=== PATIENT | female | born 1990 | race Caucasian/White ===

== ENCOUNTER 2017-02-20 10:40 | Emergency (ER) | payer OTHER ==
--- NOTE | ~2017-02-20 | CR63 ---
[facility] A Service of [facility] RADIOLOGY TEXT RESULTS PATIENT: CLEOPATRA CARMONA LOCATION: SED : [birth year] UNIT #: [id number] AGE: [address]: Ratna Lopez APRN SEX: F ORDER DR: [id number] [address] [id number] E MR#: [id number] Acc #: [id number] NAME: CLEOPATRA CARMONA : 1990 SEX: F STUDY DATE/TIME: 02/20/2017 11:51 UNIT: SED ROOM: STUDY DESCRIPTION: CR Chest 2 View Attending Physician: Ratna Lopez A.P.R.N. Ordering Physician: Ratna Matamoros A.P.R.N. Primary Care Physician: Landry Crane M.D. MEDICAL IMAGING REPORT This report is preliminary unless electronic signature is present. EXAM Chest 2 views 02/20/2017 1151 hours HISTORY 26-year-old woman with cough for 1 week with wheezing. COMPARISON 05/12/2014 FINDINGS Upright PA and lateral views of the chest demonstrate normal cardiac, mediastinal and hilar contours. The lungs are mildly hyperinflated with no acute pulmonary density or pleural effusion. IMPRESSION Mild pulmonary hyperinflation with no acute pulmonary or pleural findings. Heart size within normal limits. Dictated by... Ashley Clifton M.D. THIS IS AN ELECTRONICALLY VERIFIED REPORT Ashley Clifton M.D. at 02/20/2017 2:29 PM ALLEN/rebecca TD: 02/20/2017 13:55 JOB #: [id number] MEDICAL IMAGING REPORT Page 1 of 1
[~2017-02-20 10:40] MED LIST: ADDERALL PO; ALBUTEROL17 GM INH; ALLEGRA-D1 TAB 60/1 PO; AURALGAN AD; BACTRIM DS TABL1 TA1 PO; BACTROBAN22 GM TOP; BENTYL10 MG DOB; BIRTH CONTROL PILL; BIRTH CONTROL PILL PO; CARAFATE1 G PO; CLINDAMYCIN HC300 MG PO; DIFLUNISAL500 MG PO; FAMOTIDINE PO; IBUPROFEN800 MG PO; KEFLEX PO; MUCINEX100 MG/5 M PO; NO MEDICATIONS; PEPCID; PHENERGAN 6.25 MG/5 ML PO; PRENATA CHEWAB1 EACH; PRILOSEC; PRILOSEC20 MG PO; TYLENOL #3 PO; ZANTAC; ZITHROMAX; ZITHROMAX PO; ZYRTEC; ZYRTEC PO; ZYRTEC10 M1 PO
[2017-02-20] MEDS ORDERED: CLARITIN10 M2 PO (10:47)
== END 2017-02-20 12:26 | disposition home or self-care (01) ==
LOC: SED 10:40
DX: J20.9 Acute bronchitis, unspecified (principal); F17.200 Nicotine dependence, unspecified, uncomplicated
CPT/HCPCS: 71020; 84703; 99284